=== PATIENT | female | born 2000 ===

== ENCOUNTER 2023-06-29 14:49 | Emergency (ER) | payer MEDICAID ==
[2023-06-29] MEDS ORDERED: Cefdinir 300 MG Cap PO ONE (15:47)
== END 2023-06-29 16:10 | disposition home or self-care (01) ==
LOC: JD.ED 14:49
DX: K04.7 Periapical abscess without sinus (principal); Z79.899 Other long term (current) drug therapy; Z87.891 Personal history of nicotine dependence
CPT/HCPCS: 99282; A9270; 99283

== ENCOUNTER 2024-06-02 03:15 | Emergency (ER) | payer MEDICAID | END 2024-06-02 04:27 | disposition home or self-care (01) | LOC: JD.ED 03:15 | DX: K91.840 Postprocedural hemorrhage of a digestive system organ or structure following a digestive system procedure (principal); Z90.89 Acquired absence of other organs; Z79.899 Other long term (current) drug therapy | CPT/HCPCS: 99283 ==